=== PATIENT | male | born 1970 | race Caucasian/White ===

== ENCOUNTER 2024-12-24 16:52 | Emergency (ER) | payer BC, SELFPAY ==
[2024-12-24 16:54] VITALS: BP 133/91
--- NOTE | 2024-12-24 18:13 | ED.GENMED ---
History of Present Illness
General
Chief Complaint: Skin Problem
Time Seen by Provider: 12/24/24 17:36
History of Present Illness
History of Present Illness:
54-year-old male presents to the emergency department for evaluation of a diffuse itchy rash to the torso and extremities for the past week. He was treated with corticosteroids by urgent care and a dose of 40 mg tapering down which he feels did not
help. He has used antihistamines without relief. He does note that he picked up a poison ismael plant while doing yard work prior to the onset of symptoms. No facial lesions or lesions to the palm
Review of Systems
Review of Systems
Allergies reviewed?: Yes
All Other Systems: ROS reviewed and negative except as documented in HPI and ROS
Phy Exam
Physical Exam
Physical Exam:
GEN: Well appearing, NAD, WDWN
HEENT: Oral mucosa moist, no scleral icterus
Cardiac: Regular rate
Lung: No respiratory distress, no tachypnea
MSK: No gross deformity or injuries
Skin: Good color, no pallor or jaundice. Widespread maculopapular and urticarial lesions to the torso and extremities particularly to the intertriginous areas. No petechiae or vesicles. No lesions to the face or palms, no oral mucosal involvement
or conjunctivitis
Neuro: AO x3, moves all extremities freely
Psych: Calm, cooperative
Course
Orders/Labs/Results
Orders:
Orders
12/24/24 18:04
Dexamethasone Sod Phosphate [Decadron] 10 mg IM NOW STA
Vital Signs
Initial and Last Documented VS:
Initial Vital Signs
Temp Pulse Resp BP
98.6 F 102 20 133/91
12/24/24 16:54 12/24/24 16:54 12/24/24 16:54 12/24/24 16:54
Last Documented Vital Signs
Temp Pulse Resp BP
98.6 F 102 20 133/91
12/24/24 16:54 12/24/24 16:54 12/24/24 16:54 12/24/24 16:54
MDM/Problems Addressed
MDM/Problems Addressed:
Likely contact dermatitis, will trial higher dose prednisone therapy
*Pulse Oximetry
Patient hypoxic: no
*Critical Care Note
Total Time (30-74mins, 75-104mins- exclusive of procedures): Not Applicable
ED Attending Note
-
Portions of this chart may have been created with voice recognition software.� Occasional wrong word or��sound alike� substitutions may have occurred due to the inherent limitations of voice recognition software.
Discharge Plan
Departure
Patient Disposition: Home (Routine Discharge)
Date of Disposition: 12/24/24
Time of Disposition: 18:13
Patient with high blood pressure during this ER visit?: No
Discharge Problem:
Contact dermatitis
Instructions: Contact dermatitis
Prescriptions:
New
prednisone 10 mg tablet
10 mg PO DIRECTED Qty: 43 0RF
Rx Instructions:
Once daily as follows: 60, 60, 50, 50, 40, 40, 30, 30, 20, 20, 10, 10, 5, 5
Referrals:
PRIVATE,PHYSICIAN [Family Provider, Internal Medicine]
Activity Restrictions/Additional Instructions:
Topical anti itch medications such as Camphor or lidocaine may help
Interventions
Interventions:
*Risk Screen - Suicide Last Done: 12/24/24 16:54
*General Assessment Last Done: 12/24/24 16:54
*Nursing Disposition Last Done: 12/24/24 18:20
ED-Skin Assessment Last Done: 12/24/24 17:30
Discharge Date and Time
Discharge Date/Time: 12/24/24 18:20
Print Language: [place]
[2024-12-24] MEDS: DECADRON 10 MG IM (18:15)
== END 2024-12-24 18:20 | disposition home or self-care (01) ==
LOC: EMR 16:52
PROVIDERS: EMERGENCY PHYSICIAN Student in an Organized Health Care Education/Training Program
DX: L25.9 Unspecified contact dermatitis, unspecified cause (principal)
CPT/HCPCS: 96372; 99284